=== PATIENT | male | born 1960 ===

== ENCOUNTER → 2021-11-12 | Day surgery (SDC) | payer OTHER ==
[~2021-11-12] VITALS: Ht 160 cm; Wt 57.6 kg
[~2021-11-12] MED LIST: AMLODIPINE BESYL5 MG PO; ANORO ELLIPTA1 EACH INH; ASPIRIN EC81 M1 PO; FOLIC ACID1 M1 PO; LISINOPRIL20 MG PO; NORCO 5-325 TA1 EACH PO; PROAIR HFA8.5 GM INH
[2021-11-12 10:56] LABS: HCT 45.2 % (42.0-52.0); HGB 15.2 g/dl (13.2-18.0); MCH 32.9 pg (25.0-31.0); MCHC 33.6 g/dL (32.0-36.0); MCV 97.8 fL (78.0-100.0); MPV 8.2 fL (6.0-9.5); RBC 4.62 M/uL (4.70-6.00); RDW 13.6 % (11.5-14.0); WBC 10.1 K/uL (4.0-10.5)
[2021-11-12 12:26] LABS: BUN/CREAT RATIO (CALC) 19.6 RATIO; CREATININE 0.51 mg/dL (0.67-1.17); POTASSIUM 4.6 mmol/L (3.5-5.1)
== END | disposition home or self-care (01) ==
LOC: FAS 10:00
PROVIDERS: Surgery
DX: I87.2 Venous insufficiency (chronic) (peripheral) (principal); C34.12 Malignant neoplasm of upper lobe, left bronchus or lung; F17.210 Nicotine dependence, cigarettes, uncomplicated; Z88.5 Allergy status to narcotic agent; Z79.82 Long term (current) use of aspirin
CPT/HCPCS: 36415; 71045; 76000; 80048; C1788; J0690; J1100; J1644; J1885; J2250; J2405; J2704; J3010; J7120